=== PATIENT | female | born 1960 ===

== ENCOUNTER 2017-03-12 23:24 | Emergency (ER) | payer MEDICAID, OTHER ==
[2017-03-12 23:24] VITALS: PULSE 71
[2017-03-12 23:31] VITALS: BP 137/98; PULSE 93; RESP 20; TEMP 98.6; O2SAT 100
[2017-03-13 00:57] LABS: BASO # 0.1 K/uL (0.0-0.2); BASO % 0.8 % (0.0-2.0); EOS # 0.2 K/uL (0.0-0.7); EOS % 1.5 % (0.0-4.0); HEMATOCRIT 37.2 % (34.0-47.0); LYMPH # 2.4 K/uL (1.0-4.3); LYMPH % 22.8 % (20.0-40.0); MEAN CELL VOLUME 81.1 fl (81.0-99.0); MEAN CORPUSCULAR HEMOGLOBIN 26.5 pg (27.0-31.0); MEAN CORPUSCULAR HGB CONC 32.7 g/dL (33.0-37.0); MEAN PLATELET VOLUME 7.9 fl (7.2-11.7); MONO # 0.8 K/uL (0.0-0.8); MONO % 8.2 % (0.0-10.0); NEUT # 6.9 K/uL (1.8-7.0); NEUT % 66.7 % (50.0-75.0); RED CELL DISTRIBUTION WIDTH 16.7 % (11.5-14.5); WHITE BLOOD COUNT 10.3 K/uL (4.8-10.8)
[2017-03-13 01:05] LABS: ALB/GLOB RATIO 1.2 (1.0-2.1); ALKALINE PHOSPHATASE 79 U/L (38-126); ALT/SGPT 44 U/L (9-52); AST/SGOT 30 U/L (14-36); BILIRUBIN,TOTAL 0.5 mg/dl (0.2-1.3); BLOOD UREA NITROGEN 13 mg/dl (7-17); CALCIUM 9.1 mg/dL (8.4-10.2); CARBON DIOXIDE 27 mmol/L (22-30); CHLORIDE 105 mmol/L (98-107); GLUCOSE,RANDOM 99 mg/dL (65-105); POTASSIUM 3.8 MMOL/L (3.6-5.0); SODIUM 143 mmol/l (132-148); TOTAL PROTEIN 7.5 G/DL (6.3-8.2)
--- NOTE | 2017-03-13 01:09 | ED PDOC ---
HPI: Abdomen Time Seen by Provider: 03/12/17 23:42 Chief Complaint (Nursing): Abdominal Pain Chief Complaint (Provider): abdominal pain History Per: Patient History/Exam Limitations: no limitations Additional Complaint(s): 56yo F in Ed for eval of persistent diarrhea x 16 days after eating [employer] admits to no nausea but initially black diarrhea and now foul smelling green diarrhea. Pt denies fever chills rash foreign travel. was seen 03/09/[address] scan that shows mesenteric adenitis. pt states she contacted her pmd MD Karla suggested pt come to ER for further eval. ct scan from 03/09/17: IMPRESSION: 3.6 cm left ovarian cyst. Please correlate with pelvic ultrasound examination. Mild hepatomegaly. Nonspecific. Nonspecific elevation of right hemidiaphragm. Innumerable shotty mesenteric lymph nodes within the small bowel mesenteric consistent with mesenteric adenitis. Possible viral etiology. Preliminary interpretation of this examination was reported by [facility] at 12:03 a.m. on 03/10/2017. There is discordance of this report with the preliminary interpretation. Please note that the finding of mesenteric lymphadenitis was not described in the preliminary report of this examination. -according to record review, KOFI made attempts made to contact pt, but unable to. Past Medical History Reviewed: Historical Data, Nursing Documentation, Vital Signs Vital Signs: Last Vital Signs Temp 98.6 F 03/12/17 23:29 Pulse 93 H 03/12/17 23:29 Resp 20 03/12/17 23:29 BP 137/98 H 03/12/17 23:29 Pulse Ox 100 03/13/17 01:35 - Medical History PMH: Anemia, Anxiety, Arthritis, Asthma, Cardia Arrhythmia, CHF, COPD, Depression, Emphysema, HTN, Osteoporosis, Rheumatoid Arthritis, Schizophrenia, Sleep Apnea Denies: Chronic Kidney Disease - Surgical History Surgical History: Cholecystectomy, Tonsillectomy, - Family History Family History: States: Unknown Family Hx, [place] (Mother) - Immunization History Hx Tetanus Toxoid Vaccination: Yes Hx Influenza Vaccination: No Hx Pneumococcal Vaccination: Yes - Home Medications Home Medications: Ambulatory Orders Medication Instructions Recorded Adalimumab [Humira] 40 mg SC Q14D 10/05/15 Albuterol HFA [Ventolin HFA 90 2 puff IH Q6H PRN 10/05/15 mcg/actuation (8 g)] Alprazolam 0.25 mg PO TID 10/05/15 DULoxetine [Cymbalta] 60 mg PO DAILY 10/05/15 Digoxin [Lanoxin] 0.125 mg PO DAILY 10/05/15 Ergocalciferol (Vitamin D2) 50,000 unit PO QWK 10/05/15 [Vitamin D2] Folic Acid 1 mg PO DAILY 10/05/15 Hydroxychloroquine Sulfate 200 mg PO BID 10/05/15 [Plaquenil] Methotrexate 6 tab PO QWK 10/05/15 Zolpidem [Ambien] 10 mg PO HS 10/05/15 hydrOXYzine HCl [Atarax] 25 mg PO Q6H PRN #30 tab 05/18/16 Albuterol Sulfate [Proair Hfa] 1 puff PO DAILY 08/29/16 Fluticasone/Salmeterol 250/50 1 puff IH Q12 08/29/16 [Advair Diskus 250/50] Azithromycin [Z-Vin] 250 mg PO DAILY #6 tab 09/01/16 Digoxin [Lanoxin] 0.125 mg PO DAILY@1800 #7 tab 09/01/16 Famotidine [Pepcid] 40 mg PO DAILY #30 tablet 09/01/16 Methylprednisolone [Medrol Dose 4 mg PO DAILY #21 mg 09/01/16 Pack (21 tabs)] Promethazine [Phenergan Syrup] 5 mg PO Q4 PRN #140 mg 09/01/16 traMADol/Acetaminophen [Ultracet 1 tab PO Q4 #20 tab 03/10/17 325 MG-37.5 MG] Ciprofloxacin [Cipro] 250 mg PO BID #14 tab 03/13/17 Dicyclomine [Bentyl] 20 mg PO TID #30 tab 03/13/17 Loperamide [Loperamide HCl] 2 mg PO BID PRN #12 cap 03/13/17 metroNIDAZOLE [Flagyl] 500 mg PO BID #14 tab 03/13/17 - Allergies Allergies/Adverse Reactions: Allergies Allergy/AdvReac Type Severity Reaction Status Date / Time hydromorphone HCl Allergy Severe ANAPHYLAXIS Verified 03/09/17 19:52 [From Dilaudid] meperidine HCl [From Demerol] Allergy Severe ANAPHYLAXIS Verified 03/09/17 19:52 Review of Systems ROS Statement: Except As Marked, All Systems Reviewed And Found Negative Constitutional: Negative for: Fever, Chills Gastrointestinal: Positive for: Abdominal Pain, Diarrhea. Negative for: Nausea , Vomiting Physical Exam - Reviewed Nursing Documentation Reviewed: Yes Vital Signs Reviewed: Yes - Physical Exam Appears: Positive for: Well, Non-toxic, No Acute Distress Skin: Positive for: Normal Color, Warm, DRY Cardiovascular/Chest: Positive for: Regular Rate, Rhythm Respiratory: Positive for: CNT, Normal Breath Sounds Gastrointestinal/Abdominal: Positive for: Bowel Sounds, Soft, Tenderness ( diffuse), Distended Back: Positive for: Normal Inspection Extremity: Positive for: Normal ROM Neurologic/Psych: Positive for: Alert, Oriented - Laboratory Results Result Diagrams: 03/13/17 00:54 03/13/17 00:54 - ECG O2 Sat by Pulse Oximetry: 100 - Radiology X-Ray: Interpreted by Me - Progress ED Course And Treament: pt had recent CT scan with IV contrast. will get xray of abd due to distention will get labs and given fluids and Bentyl. xray is unremarkable and labs are unremarkable. will contact MD Karla as requested to inform Medical Decision Making Medical Decision Making: MD Karla contacted. considering pt is without abnormality on xray, unremarkable labs and stable VS pt is stable for d.c with imodium, benlty and flagy/cipro. stool culture for c-dfif and O/P sent. Disposition - Clinical Impression Clinical Impression: Mesenteric adenitis, Colitis - Patient ED Disposition Is Patient to be Admitted: No Counseled Patient/Family Regarding: Studies Performed, Diagnosis, Need For Followup, Rx Given - Disposition Referrals: Celestino Acosta MD [Primary Care Provider] - Disposition: Routine/Home Disposition Time: 01:48 Condition: STABLE Prescriptions: Ciprofloxacin [Cipro] 250 mg PO BID #14 tab Dicyclomine [Bentyl] 20 mg PO TID #30 tab Loperamide [Loperamide HCl] 2 mg PO BID PRN #12 cap PRN Reason: Diarrhea metroNIDAZOLE [Flagyl] 500 mg PO BID #14 tab Instructions: Infectious Colitis (ED) Forms: [employer] (Albanian)
[2017-03-13 01:21] LABS: GFR AFRICAN-AMERICAN > 60
--- NOTE | 2017-03-13 09:32 | RAD ---
HISTORY: abdominal distention COMPARISON: [facility] chest 11/19/2015. FINDINGS: BOWEL: Normal. No obstruction. No free air. Prior cholecystectomy noted in the right upper quadrant with a vena cava filter in position at the medial right belle abdomen. No abnormal intra-abdominal calcifications identified. BONES: Normal. OTHER FINDINGS: None. IMPRESSION: Nonobstructive bowel gas pattern appreciated. Postop changes as discussed above.
== END 2017-03-13 02:10 | disposition home or self-care (01) ==
LOC: H.ER 23:24
DX: I88.0 Nonspecific mesenteric lymphadenitis (principal); K52.9 Noninfective gastroenteritis and colitis, unspecified; Z86.59 Personal history of other mental and behavioral disorders; I10 Essential (primary) hypertension

== ENCOUNTER 2017-12-10 19:14 | Observation (INO) | payer MEDICAID ==
[2017-12-10 19:15] VITALS: PULSE 92
[2017-12-10 19:17] VITALS: BMI 47.8
[2017-12-10] MEDS ORDERED: Sodium Chloride 0.9% 1,000 ML IV STA (19:54)
--- NOTE | 2017-12-10 20:37 | ED PDOC ---
Lower Extremity Pain/Injury Time Seen by Provider: 12/10/17 19:27 Chief Complaint (Nursing): Pain, Chronic Chief Complaint (Provider): Lower leg pain History Per: Patient History/Exam Limitations: no limitations Onset/Duration Of Symptoms: Days, Persistent Current Symptoms Are (Timing): Still Present Additional History Per: Patient Additional Complaint(s): 57yo female with history of lupus, rheumatoid arthritis, obesity, diabetes, hypertesnion, recent diagnosis of Chakraborty's palsy, presents to ED with complaints of persistently worsening lower extremity pain. She was seen at [facility] ER on 12/04 and 12/07 and reports the pain has been worsening; she describes the pain as 10/10, constant and unrelieved with taking Tylenol #4, and autoimmune disease modifying agents methotrexate and plaquinil. She follows up with Dr. Acosta and Dr Weiss (aerospace project manager). She has no other medical complaints. Past Medical History Reviewed: Historical Data, Nursing Documentation, Vital Signs Vital Signs: Last Vital Signs Temp 98.2 F 12/10/17 19:20 Pulse 81 12/10/17 19:20 Resp 18 12/10/17 19:20 BP 148/66 12/10/17 19:20 Pulse Ox 98 12/10/17 19:20 - Medical History PMH: Anemia, Anxiety, Arthritis, Asthma, Cardia Arrhythmia, CHF, COPD, Depression, Emphysema, HTN, Osteoporosis, Rheumatoid Arthritis, Schizophrenia, Sleep Apnea Denies: Chronic Kidney Disease - Surgical History Surgical History: Cholecystectomy, Tonsillectomy, - Family History Family History: States: Unknown Family Hx, [place] (Mother) - Social History Current smoker - smoking cessation education provided: No Alcohol: None Drugs: Denies - Immunization History Hx Tetanus Toxoid Vaccination: No Hx Influenza Vaccination: No Hx Pneumococcal Vaccination: Yes - Home Medications Home Medications: Ambulatory Orders Medication Instructions Recorded Albuterol HFA [Ventolin HFA 90 2 puff IH Q6H PRN 10/05/15 mcg/actuation (8 g)] Hydroxychloroquine Sulfate 200 mg PO BID 10/05/15 [Plaquenil] Methotrexate 6 tab PO QWK 10/05/15 Albuterol Sulfate [Proair Hfa] 1 puff PO DAILY 08/29/16 Calcium Carbonate [Oscal] 500 mg PO BID tab 08/27/17 Fluticasone/Salmeterol 250/50 1 puff IH Q12 #1 puff 08/27/17 [Advair Diskus 250/50] Naproxen [Naprosyn] 1 tab PO BID PRN #25 tab 10/22/17 Aspirin [Aspirin Chewable] 81 mg PO DAILY chew 11/10/17 Clopidogrel [Plavix] 75 mg PO DAILY tab 11/10/17 DULoxetine [Cymbalta] 60 mg PO DAILY ecc 11/10/17 Digoxin 0.125 mg PO DAILY@1800 tab 11/10/17 Folic Acid 1 mg PO DAILY tab 11/10/17 Rosuvastatin Calcium [Crestor] 10 mg PO HS tab 11/10/17 valACYclovir [Valtrex] 1,000 mg PO TID tab 11/10/17 Adalimumab [Humira] 10 ml SC PRN PRN 12/10/17 Pantoprazole [Protonix EC Tab] 40 mg PO DAILY #30 ect 12/11/17 oxyCODONE/Acetaminophen [Percocet 1 tab PO Q4 PRN #30 tab 12/11/17 5/325 mg Tab] predniSONE [predniSONE Tab] 5 mg PO DAILY #100 tab 12/11/17 traZODone [Desyrel] 100 mg PO HS #0 tab 12/11/17 - Allergies Allergies/Adverse Reactions: Allergies Allergy/AdvReac Type Severity Reaction Status Date / Time hydromorphone HCl Allergy Severe ANAPHYLAXIS Verified 12/10/17 19:16 [From Dilaudid] meperidine HCl [From Demerol] Allergy Severe ANAPHYLAXIS Verified 12/10/17 19:16 Review of Systems ROS Statement: Except As Marked, All Systems Reviewed And Found Negative Constitutional: Negative for: Fever, Chills Musculoskeletal: Positive for: Leg Pain Neurological: Negative for: Weakness, Numbness Physical Exam - Reviewed Nursing Documentation Reviewed: Yes Vital Signs Reviewed: Yes - Physical Exam Appears: Positive for: Non-toxic, Uncomfortable (obese, tearful and crying) Head Exam: Positive for: ATRAUMATIC, NORMAL INSPECTION, NORMOCEPHALIC Skin: Positive for: Normal Color Eye Exam: Positive for: Normal appearance Neck: Positive for: Supple Cardiovascular/Chest: Positive for: Regular Rate, Rhythm Respiratory: Positive for: Normal Breath Sounds Gastrointestinal/Abdominal: Positive for: Soft. Negative for: Tenderness Back: Positive for: Normal Inspection Extremity: Positive for: Normal ROM. Negative for: Pedal Edema, Calf Tenderness , Deformity, Swelling Neurologic/Psych: Positive for: Alert, Oriented. Negative for: Motor/Sensory Deficits - Laboratory Results Result Diagrams: 12/11/17 05:45 12/11/17 05:45 - ECG O2 Sat by Pulse Oximetry: 98 (RA) Pulse Ox Interpretation: Normal Medical Decision Making Medical Decision Making: Impression: Bilateral lower extremity pain with known autoimmune disease Plan: -- EKG -- Labs -- IV Fluids -- Solumedrol 125mg IVP -- Morphine 6mg IV Progress: 2135 Labs reviewed with no clinically significant abnormalities. Due to patient's multiple visits over the past 10 days, will be placed under observation due to intractable leg pain, SLE/RA flare. Case discussed with Dr. Lee, hospitalist orthotic/prosthetic practitioner, who accepts patient. Scribe attestation: Documented by Leana Dexter acting as a scribe for Lorne Islas MD. Provider attestation: All medical record entries made by the Scribe were at my direction and personally dictated by me. I have reviewed the chart and agree that the record accurately reflects my personal performance of the history, physical exam, medical decision making, and the department course for this patient. I have also personally directed, reviewed, and agree with the discharge instructions and disposition. Disposition - Clinical Impression Clinical Impression: SLE (systemic lupus erythematosus), Chronic pain disorder, Chakraborty's palsy - Patient ED Disposition Is Patient to be Admitted: Yes - Disposition Disposition Time: 21:36 Condition: STABLE
[2017-12-10 20:45] LABS: BASO # 0.1 K/uL (0.0-0.2); BASO % 0.8 % (0.0-2.0); EOS # 0.3 K/uL (0.0-0.7); EOS % 3.6 % (0.0-4.0); HEMOGLOBIN 10.5 g/dL (12.0-16.0); LYMPH # 2.7 K/uL (1.0-4.3); MEAN CORPUSCULAR HEMOGLOBIN 26.9 pg (27.0-31.0); MEAN CORPUSCULAR HGB CONC 32.4 g/dL (33.0-37.0); MEAN PLATELET VOLUME 7.5 fl (7.2-11.7); MONO # 0.6 K/uL (0.0-0.8); MONO % 7.3 % (0.0-10.0); NEUT # 4.4 K/uL (1.8-7.0); NEUT % 54.3 % (50.0-75.0); NRBC % 0.1 % (0.0-0.0); RBC 3.91 Mil/uL (3.80-5.20); RED CELL DISTRIBUTION WIDTH 17.9 % (11.5-14.5); WHITE BLOOD COUNT 8.1 K/uL (4.8-10.8)
[2017-12-10 20:58] LABS: ALB/GLOB RATIO 1.1 (1.0-2.1); ALBUMIN 3.4 g/dL (3.5-5.0); ALT/SGPT 37 U/L (9-52); AST/SGOT 25 U/L (14-36); BLOOD UREA NITROGEN 14 mg/dl (7-17); CALCIUM 9.4 mg/dL (8.4-10.2); GFR AFRICAN-AMERICAN > 60; GFR NON-AFRICAN AMERICAN > 60
[2017-12-10] MEDS ORDERED: Naproxen 500 MG TAB PO PRN ×3 (21:49→22:23)
[2017-12-10] MEDS ORDERED: Albuterol HFA 90 mcg/actuation (8 g) IH PRN (21:49)
[2017-12-10] MEDS ORDERED: Oxycodone/Acetaminophen 5/325 mg Tab PO PRN (21:57)
--- NOTE | 2017-12-10 22:02 | CP.PCM.HP ---
History of Present Illness - History of Present Illness History of Present Illness: CC: Pain throughout, possible SLE flare HPI: This is a 57 y/o female with MHx sig for SLE, RA, DM2, HTN, ?COPD, dep/anx , and recent diagnosis of Chakraborty's Palsy who comes in c/o persistent and worsening pain in LE, and generally pain all over. Was seen at [facility] ER on 12/04 and 12/05, and pain worse in spite of taking T#4, MTX, and plaquenil. Says she notes some joint swelling in LE and in hands, but no redness or warmth. No rashes, no blood in urine that she notes. Denies fever. Denies CP, SOB. PCP: Karla, Rheum: Myelo MHx: SLE, RA, DM2, HTN, ?COPD, dep/anx, and recent diagnosis of Chakraborty's Palsy SHx: Cholecystectomy, Tonsillectomy, Allergies: dilaudid, demerol Medications: Per med rec Family Hx: DM2 in family, mother [place] Social Hx: Lives alone but family nearby, no tobacco, no EtOH Present on Admission - Present on Admission Any Indicators Present on Admission: No Past Patient History - Infectious Disease Hx of Infectious Diseases: None - Past Medical History & Family History Past Medical History?: Yes - Past Social History Alcohol: None Drugs: Denies - CARDIAC Hx Cardia Arrhythmia: Yes Hx Congestive Heart Failure: Yes Hx Hypertension: Yes - PULMONARY Hx Asthma: Yes Hx Chronic Obstructive Pulmonary Disease (COPD): Yes Hx Emphysema: Yes Hx Sleep Apnea: Yes - NEUROLOGICAL Hx Neurological Disorder: No - HEENT Hx HEENT Problems: No - RENAL Hx Chronic Kidney Disease: No - ENDOCRINE/METABOLIC Hx Systemic Lupus Erythematosus: Yes Other/Comment: 'A LITTLE BIT OF DIABETES" - HEMATOLOGICAL/ONCOLOGICAL Hx Anemia: Yes - INTEGUMENTARY Hx Dermatological Problems: No - MUSCULOSKELETAL/RHEUMATOLOGICAL Hx Arthritis: Yes Hx Osteoporosis: Yes Hx Rheumatoid Arthritis: Yes - GASTROINTESTINAL Hx Gastrointestinal Disorders: No - GENITOURINARY/GYNECOLOGICAL Hx Genitourinary Disorders: No - PSYCHIATRIC Hx Anxiety: Yes Hx Depression: Yes Hx Schizophrenia: Yes - SURGICAL HISTORY Hx Cholecystectomy: Yes Hx Tonsillectomy: Yes - ANESTHESIA Hx Anesthesia: Yes Hx Anesthesia Reactions: No Hx Malignant Hyperthermia: No Meds Allergies/Adverse Reactions: Allergies Allergy/AdvReac Type Severity Reaction Status Date / Time hydromorphone HCl Allergy Severe ANAPHYLAXIS Verified 12/10/17 19:16 [From Dilaudid] meperidine HCl [From Demerol] Allergy Severe ANAPHYLAXIS Verified 12/10/17 19:16 Physical Exam - Constitutional Appears: No Acute Distress - Head Exam Head Exam: ATRAUMATIC, NORMOCEPHALIC - Eye Exam Eye Exam: EOMI, PERRL - ENT Exam ENT Exam: Mucous Membranes Moist - Neck Exam Neck exam: Positive for: Full Rom - Respiratory Exam Respiratory Exam: Clear to Auscultation Bilateral, NORMAL BREATHING PATTERN - Cardiovascular Exam Cardiovascular Exam: REGULAR RHYTHM, +S1, +S2 - GI/Abdominal Exam GI & Abdominal Exam: Normal Bowel Sounds - Extremities Exam Extremities exam: Positive for: full ROM, normal inspection Additional comments: no joint swelling, or redness/warmth - Neurological Exam Neurological exam: Alert, CN II-XII Intact, Oriented x3 - Psychiatric Exam Psychiatric exam: Depressed - Skin Skin Exam: Dry, Warm Additional comments: no rash Results - Vital Signs Recent Vital Signs: Last Vital Signs Temp 98.2 F 12/10/17 19:20 Pulse 81 12/10/17 19:20 Resp 18 12/10/17 19:20 BP 148/66 12/10/17 19:20 Pulse Ox 98 12/10/17 21:36 - Labs Result Diagrams: 12/10/17 20:41 12/10/17 20:41 Labs: Laboratory Results - last 24 hr 12/10/17 12/10/17 20:41 20:41 WBC 8.1 RBC 3.91 Hgb 10.5 L Hct 32.5 L MCV 83.0 MCH 26.9 L MCHC 32.4 L RDW 17.9 H Plt Count 231 MPV 7.5 Neut % (Auto) 54.3 Lymph % (Auto) 34.0 Giles % (Auto) 7.3 Eos % (Auto) 3.6 Baso % (Auto) 0.8 Neut # (Auto) 4.4 Lymph # (Auto) 2.7 Giles # (Auto) 0.6 Eos # (Auto) 0.3 Baso # (Auto) 0.1 ESR 46 H Sodium 143 Potassium 3.6 Chloride 106 Carbon Dioxide 29 Anion Gap 12 BUN 14 Creatinine 0.7 Est GFR ( Amer) > 60 Est GFR (Non-Af Amer) > 60 Random Glucose 137 H Calcium 9.4 Total Bilirubin 0.5 AST 25 ALT 37 Alkaline Phosphatase 67 Total Protein 6.6 Albumin 3.4 L Globulin 3.2 Albumin/Globulin Ratio 1.1 Assessment & Plan (1) SLE (systemic lupus erythematosus) Assessment and Plan: 57 y/o female presenting with intractable pain, possible SLE flare. 1) SLE flare -UA to check for RBC to r/o SLE glomerulonephritis -Check dsDNA, C3, C4, CPK -Transition steroids to PO prednisone 60 mg daily; PPI while on steroids -Pain mgmt per scale -Cont plaquenil -MTX only on 2) Chakraborty's Palsy dx'ed at [facility] wee -- cont Valtrex 3) DM2 -- QID ACHS, SSI, DM diet 4) HTN -- cont home medications 5) DVT PPx -- SQ Lovenox Status: Chronic (2) Rheumatoid arthritis Status: Chronic (3) Chakraborty's palsy Status: Acute Priority: High (4) HTN (hypertension) Status: Chronic (5) DVT prophylaxis Status: Acute
[2017-12-10] MEDS: Insulin Lispro (humaLOG) 100 Units/ml Inj SC SCH (22:36)
[2017-12-11 06:16] LABS: HEMOGLOBIN 11.6 g/dL (12.0-16.0); MEAN CELL VOLUME 83.1 fl (81.0-99.0); MEAN CORPUSCULAR HEMOGLOBIN 27.1 pg (27.0-31.0); MEAN CORPUSCULAR HGB CONC 32.6 g/dL (33.0-37.0); RBC 4.27 Mil/uL (3.80-5.20); RED CELL DISTRIBUTION WIDTH 17.7 % (11.5-14.5); WHITE BLOOD COUNT 6.9 K/uL (4.8-10.8)
[2017-12-11 06:42] LABS: BLOOD UREA NITROGEN 14 mg/dl (7-17); CALCIUM 9.5 mg/dL (8.4-10.2); GFR AFRICAN-AMERICAN > 60; GFR NON-AFRICAN AMERICAN > 60
[2017-12-11 07:52] VITALS: BP 118/71; PULSE 85; RESP 20; TEMP 97.9
[2017-12-11 07:55] LABS: SQUAMOUS EPITHIAL 8 /hpf (0-5); URINE BACTERIA OCC (<OCC); URINE BILIRUBIN NEGATIVE (NEGATIVE); URINE BLOOD NEGATIVE (NEGATIVE); URINE CLARITY CLOUDY (Clear); URINE COLOR YELLOW (YELLOW); URINE GLUCOSE (UA) NEG (Normal); URINE LEUKOCYTE ESTERASE NEG Leu/uL (Negative); URINE PROTEIN 100 mg/dL (NEGATIVE); URINE UROBILINOGEN 0.2-1.0 mg/dL (0.2-1.0)
[2017-12-11] MEDS ORDERED: Fluticasone-Salmeterol 250-50mcg Diskus IH SCH (09:00)
[2017-12-11] MEDS ORDERED: VALACYCLOVIR 1000 MG PO SCH (09:00)
[2017-12-11] MEDS ORDERED: Enoxaparin 40 mg Syringe SC SCH (09:00)
[2017-12-11] MEDS ORDERED: Pantoprazole 40 mg EC Tab PO SCH (09:00)
--- NOTE | 2017-12-11 10:02 | CARD ---
APPROVED REPORT EKG Measurement Heart [id number] ND 138P [id number] <Conclusion> Normal sinus rhythm Nonspecific T wave abnormality Abnormal ECG
--- NOTE | 2017-12-11 11:14 | CP.PCM.DIS ---
Provider - Provider Date of Admission: 12/10/17 21:18 Attending physician: Kristine Lee MD Primary care physician: Dr. Acosta Time Spent in preparation of Discharge (in minutes): 15 Hospital Course - Lab Results Lab Results: Most Recent Lab Values WBC 6.9 K/uL (4.8-10.8) 12/11/17 05:45 RBC 4.27 Mil/uL (3.80-5.20) 12/11/17 05:45 Hgb 11.6 g/dL (12.0-16.0) L 12/11/17 05:45 Hct 35.5 % (34.0-47.0) 12/11/17 05:45 MCV 83.1 fl (81.0-99.0) 12/11/17 05:45 MCH 27.1 pg (27.0-31.0) 12/11/17 05:45 MCHC 32.6 g/dL (33.0-37.0) L 12/11/17 05:45 RDW 17.7 % (11.5-14.5) H 12/11/17 05:45 Plt Count 265 K/uL (130-400) 12/11/17 05:45 MPV 7.5 fl (7.2-11.7) 12/10/17 20:41 Neut % (Auto) 54.3 % (50.0-75.0) 12/10/17 20:41 Lymph % (Auto) 34.0 % (20.0-40.0) 12/10/17 20:41 [place] % (Auto) 7.3 % (0.0-10.0) 12/10/17 20:41 Eos % (Auto) 3.6 % (0.0-4.0) 12/10/17 20:41 Baso % (Auto) 0.8 % (0.0-2.0) 12/10/17 20:41 Neut # (Auto) 4.4 K/uL (1.8-7.0) 12/10/17 20:41 Lymph # (Auto) 2.7 K/uL (1.0-4.3) 12/10/17 20:41 [place] # (Auto) 0.6 K/uL (0.0-0.8) 12/10/17 20:41 Eos # (Auto) 0.3 K/uL (0.0-0.7) 12/10/17 20:41 Baso # (Auto) 0.1 K/uL (0.0-0.2) 12/10/17 20:41 ESR 46 mm/hr (0-30) H 12/10/17 20:41 Sodium 145 mmol/l (132-148) 12/11/17 05:45 Potassium 4.8 MMOL/L (3.6-5.0) 12/11/17 05:45 Chloride 104 mmol/L (98-107) 12/11/17 05:45 Carbon Dioxide 32 mmol/L (22-30) H 12/11/17 05:45 Anion Gap 14 (10-20) 12/11/17 05:45 BUN 14 mg/dl (7-17) 12/11/17 05:45 Creatinine 0.8 mg/dl (0.7-1.2) 12/11/17 05:45 Est GFR ( Amer) > 60 12/11/17 05:45 Est GFR (Non-Af Amer) > 60 12/11/17 05:45 POC Glucose (mg/dL) 102 mg/dL (65-110) 12/10/17 22:24 Random Glucose 184 mg/dL (65-105) H 12/11/17 05:45 Calcium 9.5 mg/dL (8.4-10.2) 12/11/17 05:45 Total Bilirubin 0.5 mg/dl (0.2-1.3) 12/10/17 20:41 AST 25 U/L (14-36) 12/10/17 20:41 ALT 37 U/L (9-52) 12/10/17 20:41 Alkaline Phosphatase 67 U/L (38-126) 12/10/17 20:41 Total Creatine Kinase 109 U/L (30-135) 12/11/17 05:45 Total Protein 6.6 G/DL (6.3-8.2) 12/10/17 20:41 Albumin 3.4 g/dL (3.5-5.0) L 12/10/17 20:41 Globulin 3.2 gm/dL (2.2-3.9) 12/10/17 20:41 Albumin/Globulin Ratio 1.1 (1.0-2.1) 12/10/17 20:41 Urine Color Yellow (YELLOW) 12/11/17 03:37 Urine Clarity Cloudy (Clear) 12/11/17 03:37 Urine pH 5.0 (5.0-8.0) 12/11/17 03:37 Ur Specific [place] 1.025 (1.003-1.030) 12/11/17 03:37 Urine Protein 100 mg/dL (NEGATIVE) 12/11/17 03:37 Urine Glucose (UA) Neg mg/dL (Normal) 12/11/17 03:37 Urine Ketones Negative mg/dL (NEGATIVE) 12/11/17 03:37 Urine Blood Negative (NEGATIVE) 12/11/17 03:37 Urine Nitrate Negative (NEGATIVE) 12/11/17 03:37 Urine Bilirubin Negative (NEGATIVE) 12/11/17 03:37 Urine Urobilinogen 0.2-1.0 mg/dL (0.2-1.0) 12/11/17 03:37 Ur Leukocyte Esterase Neg [place]/uL (Negative) 12/11/17 03:37 Urine RBC (Auto) 1 /hpf (0-3) 12/11/17 03:37 Urine Microscopic WBC 2 /hpf (0-5) 12/11/17 03:37 Ur Squamous Epith Cells 8 /hpf (0-5) H 12/11/17 03:37 Urine Bacteria Occ (<OCC) H 12/11/17 03:37 - Hospital Course Hospital Course: 57 y/o female with PMH of SLE, RA, DM2, HTN, ?COPD, depresion/anxienty ,obese , dyslipidemia and recent diagnosis of Chakraborty's Palsy came in complaining of persistent and worsening pain in LE, and generally pain all over. Was seen at [facility] ER on 12/04 and 12/05, and pain worse in spite of taking Tuylenol # 4, MTX, and plaquenil. Says she notes some joint swelling in LE and in hands, but no redness or warmth. No rashes, no blood in urine that she notes. Denies fever. Denies CP, SOB.patient sttaes that her PMD and her farm equipment operator are not giving her any pain medications any longer. patient placed under observation for generalized pain , started on high dose prednisone Po and Percoset and PRN PRN. Physical exam obvious for an obese patient with no rashes no joint swelling. Patient is hemodynamically stable, afebrile.C3, C4 - wnl ESR minimally elevated .Counselled patient to follow up with her farm equipment operator and her PMD. Will discharge patient home on Prednisone Poslow tappering dose and Percoset PRN for pain . Recoemmnded to increase Trazodone dose from 50 mg to 100 mg po HS. 1. Suspected SLE flare/ generalized body pain Started on PO steroids slow emma and pain medication Follow up witH PMD and and her farm equipment operator\ continue plaquenil 2. Chakraborty's Palsy dx'ed at [facility] wee -- cont Valtrex 3. DM2 -controlled . Continue home meds 4. HTN -- cont home medications 5. Obesity BMI 47 6. COPD -stabnle 7. Depression and anxiety- increase Trazodone dose from 50 to 100 mg PO daily. follow up with Dr. Acosta 8.Dyslipidemia--statin Discharge Exam - Head Exam Head Exam: ATRAUMATIC, NORMOCEPHALIC Additional comments: obese - Eye Exam Eye Exam: EOMI, PERRL Additional comments: left eye palpebral droop - ENT Exam ENT Exam: Mucous Membranes Moist, Normal Exam - Neck Exam Neck exam: Full Rom, Normal Inspection - Respiratory Exam Respiratory Exam: Clear to PA & Lateral, NORMAL BREATHING PATTERN. absent: Rhonchi, Wheezes - Cardiovascular Exam Cardiovascular Exam: REGULAR RHYTHM, RRR, +S1, +S2. absent: JVD - GI/Abdominal Exam GI & Abdominal Exam: Normal Bowel Sounds, Soft. absent: Distended, Guarding, Rebound, Tenderness - Rectal Exam Rectal Exam: Deferred - Extremities Exam Extremities exam: normal capillary refill, normal inspection, pedal pulses present - Back Exam Back exam: NORMAL INSPECTION - Neurological Exam Neurological exam: Alert, CN II-XII Intact, Oriented x3 - Psychiatric Exam Psychiatric exam: Anxious, Flat Affect - Skin Skin Exam: Dry, Intact, Normal Color, Warm Discharge Plan - Discharge Medications Prescriptions: oxyCODONE/Acetaminophen [Percocet 5/325 mg Tab] 1 tab PO Q4 PRN #30 tab PRN Reason: Pain, Severe (8-10) Pantoprazole [Protonix EC Tab] 40 mg PO DAILY #30 ect predniSONE [predniSONE Tab] 5 mg PO DAILY #100 tab - Follow Up Plan Condition: STABLE Disposition: HOME/ ROUTINE Patient education suggested?: Yes Instructions: Rheumatoid Arthritis (DC), Lupus (DC) Additional Instructions: follow up with Dr. Acosta in 1 week Referrals: Celestino Acosta MD [Family Provider] -
[2017-12-11 11:55] LABS: COMPLEMENT C4 27.4 mg/dL (14.0-44.0)
[2017-12-11] MEDS: Insulin Lispro (humaLOG) 100 Units/ml Inj SC SCH (12:45)
[2017-12-11] MEDS ORDERED: Digoxin 125 mcg (0.125 mg) Tab PO SCH (18:00)
[2017-12-11 23:48] VITALS: O2SAT 98
== END 2017-12-11 13:08 | disposition home or self-care (01) ==
LOC: H.ER 19:14 → H.ERHOLD 21:18 → H.MEDSURG1 23:24
PROVIDERS: ADMIT Internal Medicine; ATTEND Internal Medicine
DX: R52 Pain, unspecified (principal); M06.9 Rheumatoid arthritis, unspecified; M32.9 Systemic lupus erythematosus, unspecified; J43.9 Emphysema, unspecified; M81.0 Age-related osteoporosis without current pathological fracture; E66.9 Obesity, unspecified; Z68.42 Body mass index [BMI] 45.0-49.9, adult; F41.9 Anxiety disorder, unspecified; F32.9 Major depressive disorder, single episode, unspecified; E11.9 Type 2 diabetes mellitus without complications; N05.9 Unspecified nephritic syndrome with unspecified morphologic changes; G51.0 Bell's palsy; G47.30 Sleep apnea, unspecified; E78.5 Hyperlipidemia, unspecified; I10 Essential (primary) hypertension
CPT/HCPCS: 36415; 80048; 80053; 81003; 82550; 82948; 85025; 85027; 85651; 86160; 86225; 93005; 96360; 96374; 96376; 99284; G0378; J1650; J2270; J2930; J7030

== ENCOUNTER 2018-05-07 01:55 | Emergency (ER) | payer MEDICAID ==
[2018-05-07 01:56] VITALS: PULSE 74; BMI 47.8
[2018-05-07 02:15] VITALS: RESP 18
[2018-05-07] MEDS ORDERED: Morphine 4 MG/ML VIAL IV ONE (02:48)
[2018-05-07] MEDS ORDERED: Morphine 5 MG/ML SYRINGE IM STA (03:00)
[2018-05-07] MEDS ORDERED: Morphine 4 MG/ML VIAL ONE (03:03)
[2018-05-07] MEDS ORDERED: Morphine 4 MG/ML VIAL IM STA (03:14)
--- NOTE | 2018-05-07 05:36 | ED PDOC ---
Arrival/HPI - General Chief Complaint: Pain, Chronic Time Seen by Provider: 05/07/18 02:15 - History of Present Illness Narrative History of Present Illness (Text): 05/07/18 06:01 pt with history of chronic pain, states that she has whole body pain for 2 day. her doctor usually gives her the tylenol 3 tablets but she ran out two days ago and that is when symptoms began. no fever/vomiting/chest or abdominal pain/diarrhea. she states she can only get morphine and thas what she wants. 05/07/18 06:12 Context: Work Past Medical History - Infectious Disease Hx of Infectious Diseases: None - Cardiac Hx Cardiac Arrhythmia: Yes Hx Congestive Heart Failure: Yes Hx Hypertension: Yes Other/Comment: copd. asthma - Pulmonary Hx Asthma: Yes Hx Chronic Obstructive Pulmonary Disease (COPD): Yes Hx Emphysema: Yes Hx Sleep Apnea: Yes - Neurological Hx Neurological Disorder: No - HEENT Hx HEENT Disorder: No - Renal Hx Renal Disorder: No - Endocrine/Metabolic Hx Diabetes Mellitus Type 2: Yes Hx Systemic Lupus Erythematosus: Yes - Hematological/Oncological Hx Anemia: Yes - Integumentary Hx Dermatological Disorder: No - Musculoskeletal/Rheumatological Hx Arthritis: Yes Hx Osteoporosis: Yes Hx Rheumatoid Arthritis: Yes - Gastrointestinal Hx Gastrointestinal Disorders: No - Genitourinary/Gynecological Hx Genitourinary Disorders: No - Psychiatric Hx Anxiety: Yes Hx Bipolar Disorder: Yes Hx Depression: Yes Hx Schizophrenia: Yes Hx Substance Use: No - Surgical History Hx Cholecystectomy: Yes Hx Tonsillectomy: Yes - Anesthesia Hx Anesthesia: Yes Hx Anesthesia Reactions: No Hx Malignant Hyperthermia: No - Suicidal Assessment Feels Threatened In Home Enviroment: No Family/Social History Family/Social History: Unknown Family HX Smoking Status: Light Smoker < 10 Cigarettes Daily Hx Alcohol Use: Yes Hx Substance Use: No Allergies/Home Meds Allergies/Adverse Reactions: Allergies hydromorphone HCl [From Dilaudid] Allergy (Severe, Verified 04/26/18 01:57) ANAPHYLAXIS meperidine HCl [From Demerol] Allergy (Severe, Verified 04/26/18 01:57) ANAPHYLAXIS Home Medications: Home Meds Medication Instructions Recorded Confirmed Albuterol HFA [Ventolin HFA 90 2 puff IH Q6H PRN 10/05/15 04/26/18 mcg/actuation (8 g)] Hydroxychloroquine Sulfate 200 mg PO BID 10/05/15 04/26/18 [Plaquenil] Methotrexate 6 tab PO QWK 10/05/15 04/26/18 Albuterol Sulfate [Proair Hfa] 1 puff PO DAILY 08/29/16 04/26/18 Adalimumab [Humira] 10 ml SC PRN PRN 12/10/17 04/26/18 predniSONE [predniSONE Tab] 10 mg PO DAILY 04/10/18 04/26/18 Physical Exam Vital Signs Reviewed: Yes Vital Signs Temp Pulse Resp BP Pulse Ox 05/07/18 02:12 99.0 F 88 18 129/68 97 Temperature: Afebrile Blood Pressure: Normal Pulse: Regular Respiratory Rate: Normal Appearance: Positive for: Well-Appearing, Non-Toxic, Comfortable Pain Distress: None Mental Status: Positive for: Alert and Oriented X 3 - Systems Exam Head: Present: Atraumatic, Normocephalic Pupils: Present: PERRL Extroacular Muscles: Present: EOMI Conjunctiva: Present: Normal Ears: Present: Normal Mouth: Present: Moist Mucous Membranes Neck: Present: Normal Range of Motion Respiratory/Chest: Present: Clear to Auscultation Cardiovascular: Present: Regular Rate and Rhythm, Other (left chest wall tisha cath) Abdomen: No: Tenderness Upper Extremity: Present: Normal Inspection Lower Extremity: Present: Normal Inspection Neurological: Present: GCS=15 Skin: Present: Warm, Dry Psychiatric: Present: Alert, Oriented x 3 Medical Decision Making ED Course and Treatment: 05/07/18 06:03 Pt with normal vitals. requesting morphine IM. exam is normal. pt with stable gait. pt stable for dc home after morphine. 05/07/18 20:42 - Lab Interpretations Lab Results: Lab Results 05/07/18 02:59: Influenza Typ A,B (EIA) Negative for flu a/b - Medication Orders Current Medication Orders: Discontinued Medications Morphine Sulfate (Morphine) 4 mg IM STAT STA Stop: 05/07/18 03:01 Last Admin: 05/07/18 03:03 Dose: 4 mg MAR Pain Assessment Document 05/07/18 03:03 TS (Rec: 05/07/18 03:03 TS [id number]) Pain Reassessment Is this a pain reassessment? No Sleep Is patient sleeping during reassessment? No Presence of Pain Presence of Pain Yes IM Administration Charges Document 05/07/18 03:03 TS (Rec: 05/07/18 03:03 TS [id number]) Injection Site MAR Injection Site Right Deltoid Charges for Administration # of IM Administrations 1 Morphine Sulfate (Morphine) 4 mg IM STAT STA Stop: 05/07/18 03:15 Last Admin: 05/07/18 05:22 Dose: Not Given Non-Admin Reason: double order Disposition/Present on Arrival - Present on Arrival Any Indicators Present on Arrival: No History of DVT/PE: No History of Uncontrolled Diabetes: No Urinary Catheter: No History of Decub. Ulcer: No History Surgical Site Infection Following: None - Disposition Have Diagnosis and Disposition been Completed?: Yes Diagnosis: Whole body pain Disposition: HOME/ ROUTINE Disposition Time: 03:50 Patient Plan: Discharge Condition: IMPROVED Discharge Instructions (ExitCare): Acute Pain, Adult (DC) Additional Instructions: follow up with your primary doctor in 1-2 days return to the ED with any worsening or concerning symptoms Forms: [email or web address] (Indonesian)
[2018-05-07 05:37] VITALS: BP 137/65; PULSE 83; TEMP 98.4; O2SAT 99
== END 2018-05-07 04:01 | disposition home or self-care (01) ==
LOC: H.ER 01:55
DX: M79.18 Myalgia, other site (principal); E11.9 Type 2 diabetes mellitus without complications; M32.9 Systemic lupus erythematosus, unspecified; I11.0 Hypertensive heart disease with heart failure
CPT/HCPCS: 87804; 96372; 99283; J2270

== ENCOUNTER 2018-09-02 00:25 | Emergency (ER) | payer MEDICAID ==
[2018-09-02 00:26] VITALS: PULSE 74
[2018-09-02 00:50] VITALS: BMI 42.7
[2018-09-02 01:00] VITALS: BP 135/88; PULSE 88; RESP 18; TEMP 100.1; O2SAT 97
--- NOTE | 2018-09-02 01:03 | ED PDOC ---
Arrival/HPI - General Chief Complaint: Pain, Chronic Time Seen by Provider: 09/02/18 01:03 Historian: Patient, Family - History of Present Illness Quality: Unable to Describe Severity Level: 9 (Pt presents to the ED as a chronic pain patient with rheumatoid arthritis who treats her pain with apap #[address] Acosta; pt indicated that her last rx should have lasted until September 04, but she exhausted her supply of narcotics two and a half weeks early. Pt indicates that her pain is whole body pain and is not remedied with 200mg of advil or ibuprofen. Pt denies NVD or other symptoms ) Past Medical History - Provider Review Nursing Documentation Reviewed: Yes - Travel History Have you recently traveled outside [place] w/in the past 3 mons?: No - Infectious Disease Hx of Infectious Diseases: None - Cardiac Hx Cardiac Arrhythmia: Yes Hx Congestive Heart Failure: Yes Hx Hypertension: Yes - Pulmonary Hx Asthma: Yes Hx Chronic Obstructive Pulmonary Disease (COPD): Yes Hx Emphysema: Yes Hx Sleep Apnea: Yes - Neurological Hx Neurological Disorder: No - HEENT Hx HEENT Disorder: No - Renal Hx Renal Disorder: No - Endocrine/Metabolic Hx Diabetes Mellitus Type 2: Yes Hx Systemic Lupus Erythematosus: Yes - Hematological/Oncological Hx Anemia: Yes - Integumentary Hx Dermatological Disorder: No - Musculoskeletal/Rheumatological Hx Arthritis: Yes Hx Osteoporosis: Yes Hx Rheumatoid Arthritis: Yes - Gastrointestinal Hx Gastrointestinal Disorders: No - Genitourinary/Gynecological Hx Genitourinary Disorders: No - Psychiatric Hx Anxiety: Yes Hx Bipolar Disorder: Yes Hx Depression: Yes Hx Schizophrenia: Yes Hx Substance Use: No - Surgical History Other/Comment: "STENT IN GROIN;" PORT-A-CATH INSERTION TO LEFT CHEST - Anesthesia Hx Anesthesia: Yes Hx Anesthesia Reactions: No Hx Malignant Hyperthermia: No - Suicidal Assessment Feels Threatened In Home Enviroment: No Family/Social History - Physician Review Nursing Documentation Reviewed: Yes Family/Social History: Unknown Family HX Smoking Status: Light Smoker < 10 Cigarettes Daily Hx Alcohol Use: Yes Hx Substance Use: No Allergies/Home Meds Allergies/Adverse Reactions: Allergies hydromorphone HCl [From Dilaudid] Allergy (Severe, Verified 06/19/18 14:30) ANAPHYLAXIS meperidine HCl [From Demerol] Allergy (Severe, Verified 06/19/18 14:30) ANAPHYLAXIS Home Medications: Home Meds Medication Instructions Recorded Confirmed ALPRAZolam [Xanax] 1 mg PO 06/19/18 Acetaminophen with Codeine 1 tab PO 06/19/18 [Tylenol with Codeine No. 4 300 mg-60 mg] Calcium 500 + Vit D Caplet 06/19/18 DULoxetine [Cymbalta] 60 mg PO 06/19/18 Digoxin [Lanoxin] 125 mcg PO 06/19/18 Folic Acid 1 mg PO 06/19/18 Hydroxychloroquine Sulfate 200 mg PO 06/19/18 [Plaquenil] Methotrexate 2.5 mg PO 06/19/18 Pantoprazole Sodium [Protonix] 20 mg PO 06/19/18 Rosuvastatin Calcium 10 mg PO 06/19/18 Ventolin HFA 90 mcg/actuation (8 g) 1 inh INH PRN PRN 06/19/18 06/19/18 traZODone [trazodone Hydrochloride] 100 mg PO 06/19/18 Review of Systems - Review of Systems Musculoskeletal: Arthralgias, Joint Swelling Physical Exam - Physical Exam Physical Exam Limitations: Uncooperative Vital Signs Reviewed: Yes Vital Signs Temp Pulse Resp BP Pulse Ox 09/02/18 00:50 100.1 F H 88 18 135/88 97 Temperature: Febrile (100F) Blood Pressure: Normal Pulse: Regular Respiratory Rate: Normal Appearance: Positive for: Well-Appearing, Non-Toxic, Uncomfortable Pain Distress: Mild Mental Status: Positive for: Alert and Oriented X 3 - Systems Exam Head: Present: Atraumatic, Normocephalic. No: Tenderness Pupils: Present: PERRL Extroacular Muscles: Present: EOMI Conjunctiva: Present: Normal Respiratory/Chest: Present: Clear to Auscultation Cardiovascular: Present: Regular Rate and Rhythm Neurological: Present: GCS=15, CN II-XII Intact, Speech Normal Psychiatric: Present: Alert, Oriented x 3 Medical Decision Making ED Course and Treatment: 09/02/18 01:22 Discussed with patient the limitiaatoin on treating chronic pain conditions in the emergency room and the rationale underlying those limitations. Pt became agitated when she was informed that no narcotics would be given or prescribed out of the emergncy room. Her daughter attmpted to explain this rationale. Pt indicated that 6mg of morphine is what she has been given at other hospitals. P: apap 975 for pain toradol 60 IM for pain and anti-inflamatory effect re-evaluate and discharge 09/02/18 01:24 Disposition/Present on Arrival - Present on Arrival Any Indicators Present on Arrival: No History of DVT/PE: No History of Uncontrolled Diabetes: No Urinary Catheter: No History Surgical Site Infection Following: None - Disposition Have Diagnosis and Disposition been Completed?: Yes Diagnosis: Chronic pain Disposition Time: 02:09 Patient Plan: Discharge Patient Problems: Current Active Problems Problem Status Onset Chronic pain Acute Condition: STABLE Discharge Instructions (ExitCare): Chronic Pain (DC) Referrals: Celestino Acosta MD [Staff Provider] - Forms: [email or web address] (Ivorian)
== END 2018-09-02 02:16 | disposition home or self-care (01) ==
LOC: H.ER 00:25
DX: G89.29 Other chronic pain (principal); E11.9 Type 2 diabetes mellitus without complications; I11.0 Hypertensive heart disease with heart failure; M32.9 Systemic lupus erythematosus, unspecified; M81.0 Age-related osteoporosis without current pathological fracture
CPT/HCPCS: 96372; 99281; J1885